=== PATIENT | female | born 1965 ===

== ENCOUNTER 2017-03-01 19:03 | Emergency (ER) | payer BC ==
[2017-03-01 19:10] VITALS: TEMP 98; O2SAT 99; BMI 25.8
[2017-03-01 20:02] LABS: BASO # 0.02 K/mm3 (0.0-2.0); BASO % 0.3 % (0.0-3.0); EOS # 0.2 (0.0-0.7); EOS % 2.4 % (1.5-5.0); GRAN # 4.54 (1.4-6.5); GRAN % 59.6 % (50.0-68.0); LYMPH # 2.5 (1.2-3.4); MEAN CELL VOLUME 86.7 fl (80.0-105.0); MEAN CORPUSCULAR HEMOGLOBIN 28.8 pg (25.0-35.0); MEAN CORPUSCULAR HGB CONC 33.2 g/dl (31.0-37.0); MEAN PLATELET VOLUME 10.2 fl (7.0-11.0); MONO # 0.4 (0.1-0.6); MONO % 4.7 % (1.0-6.0); RED CELL DISTRIBUTION WIDTH 13.4 % (11.5-14.5); WHITE BLOOD COUNT 7.6 10^3/ul (4.5-11.0)
[2017-03-01 20:06] LABS: ALB/GLOB RATIO 1.4 (1.1-1.8); ALKALINE PHOSPHATASE 70 U/L (38-126); ALT/SGPT 42 U/L (7-56); AST/SGOT 25 U/L (14-36); BILIRUBIN,TOTAL 0.3 mg/dL (0.2-1.3); BLOOD UREA NITROGEN 14 mg/dL (7-21); CALCIUM 9.6 mg/dL (8.4-10.5); CARBON DIOXIDE 24 mmol/L (21-33); CHLORIDE 108 mmol/L (98-107); GFR AFRICAN-AMERICAN > 60; GLUCOSE,RANDOM 103 mg/dL (70-110); MAGNESIUM 2.1 mg/dL (1.7-2.2); PHOSPHOROUS 3.5 mg/dL (2.5-4.5); POTASSIUM 4.6 mmol/L (3.6-5.0); SODIUM 142 mmol/L (132-148); TOTAL PROTEIN 7.7 g/dL (5.8-8.3)
[2017-03-01 20:11] LABS: ALCOHOL SERUM < 10 mg/dL (0-10)
[2017-03-01] MEDS ORDERED: Sodium Chloride 0.9% 1,000 ML IV SCH (20:15)
[2017-03-01 20:18] LABS: TROPONIN I < 0.01 ng/mL
--- NOTE | 2017-03-01 20:22 | CT ---
EXAM: CT Head Without Intravenous Contrast EXAM DATE/TIME: 03/01/2017 7:37 PM CLINICAL HISTORY: The patient age is 52 years old and is female; Signs and symptoms; Syncope and collapse; Additional info: Sycopal episode Facility exam id and description: Ct heads head w/o contrast TECHNIQUE: Axial computed tomography images of the head/brain without intravenous contrast. All CT scans at this facility use one or more dose reduction techniques, viz.: automated exposure control; ma/kV adjustment per patient size (including targeted exams where dose is matched to indication; i.e. head); or iterative reconstruction technique. COMPARISON: No relevant prior studies available. FINDINGS: Brain: The white-villagran differentiation is preserved demonstrating no acute territorial type infarct. No acute intracranial hemorrhage is seen. There is a mild increase in extra-axial fluid in the posterior fossa, consistent with a lolly-cisterna magna variant or arachnoid cyst. No edema. Midline shift: There is no midline shift. Ventricles: No ventriculomegaly. Bones/joints: The calvarium demonstrates no evidence for a depressed fracture. Soft tissues: No acute abnormality. Sinuses: Unremarkable as visualized. No acute sinusitis. Mastoid air cells: No mastoid effusion. IMPRESSION: 1. No acute intracranial hemorrhage or acute territorial type infarct. 2. Incidental/non-acute findings are described above.
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
[2017-03-01 20:30] LABS: URINE BILIRUBIN NEGATIVE (NEGATIVE); URINE BLOOD NEGATIVE (NEGATIVE); URINE GLUCOSE (UA) NEGATIVE (NEGATIVE); URINE KETONE NEGATIVE (NEGATIVE); URINE LEUKOCYTE ESTERASE SMALL Leu/uL (NEGATIVE); URINE PROTEIN NEGATIVE mg/dL (<30 mg/dL); URINE UROBILINOGEN 0.2 E.U./dL (<1 E.U./dL)
[2017-03-01 20:31] LABS: URINE APPEARANCE CLEAR (CLEAR); URINE COLOR LIGHT YELLOW (YELLOW)
[2017-03-01 20:43] LABS: URINE BACTERIA MOD (NEG); URINE EPITHELIAL CELLS 0 - 2 /hpf (0-5); URINE RBC 0 - 2 /hpf (0-2)
[2017-03-01 21:22] LABS: THYROID STIMULATING HORMONE 1.32 mIU/mL (0.46-4.68)
[2017-03-01 22:07] VITALS: BP 126/76; PULSE 86; RESP 16
--- NOTE | 2017-03-02 08:58 | CARD ---
APPROVED REPORT EKG Measurement Heart [id number] <Conclusion> Normal sinus rhythm Normal ECG
== END 2017-03-01 22:07 | disposition left against medical advice (07) ==
LOC: ED 19:03
DX: R55 Syncope and collapse (principal)
CPT/HCPCS: 70450; 80053; 81001; 83735; 84100; 84146; 84443; 84484; 85025; 87086; 87181; 93005; 99285; G0480; J7040